=== PATIENT | male | born 1980 | race Two or more races ===

== ENCOUNTER 2018-09-22 12:39 | Emergency (ER) | payer OTHER ==
[~2018-09-22] VITALS: Ht 182.9 cm; Wt 99.8 kg
[2018-09-22] MEDS ORDERED: Tetanus/Diptheria/Pertussis Vaccine 0.5ml Syr IM ONE (13:00)
[2018-09-22] MEDS ORDERED: Norco 5mg/325mg tab ORAL ONE (13:30)
[2018-09-22 13:56] VITALS: BP 132/79
--- NOTE | 2018-09-22 14:29 | Emergency Room Report ---
History of Present Illness General Chief Complaint: Laceration Source: Patient Present Illness HPI 37 YO male presents to the ED c/o in severity pain in the left hand ( dorsum). s/p thorn puncture at work. Patient reports swelling, bleeding and tenderness to the dorsum of the left hand. Patient states he is right-hand dominant. Patient believes that the thorn still stuck inside of his hand. reports large sized thorn approx 3-4 inches. Denies numbness tingling or loss of sensation or gross motor movements of the extremities. Denies taking blood thinning medications. Denies CP, Palpitations, LOC, AMS, dizziness, or weakness. Patient is not sure when his last tetanus vaccination was. Pt. does not know when his last tetanus vaccination was. Allergies: Coded Allergies: No Known Allergies (Unverified , 09/22/18) Patient History Past Medical History: see triage record Past Surgical History: none Pertinent Family History: none Reviewed Nursing Documentation: PMH: Agreed; PSxH: Agreed Nursing Documentation-PMH Past Medical History: No Stated History Review of Systems All Other Systems: negative except mentioned in HPI Physical Exam Vital Signs Date Time Temp Pulse Resp B/P (MAP) Pulse Ox O2 Delivery O2 Flow Rate FiO2 09/22/18 12:45 97.9 70 17 143/82 99 Room Air Sp02 EP Interpretation: reviewed, normal General Appearance: alert, GCS 15, non-toxic, mild distress Head: normocephalic, atraumatic Eyes: bilateral eye normal inspection, bilateral eye PERRL ENT: hearing grossly normal, normal voice Neck: full range of motion Respiratory: lungs clear, normal breath sounds, speaking full sentences Cardiovascular #1: regular rate, rhythm, normal capillary refill Musculoskeletal: back normal, gait/station normal, normal range of motion, non- tender, swelling - moderate swelling to the dorsum of the left hand Neurologic: alert, oriented x3, responsive, motor strength/tone normal, sensory intact, normal gait, speech normal, grossly normal Psychiatric: judgement/insight normal Skin: no rash, warm/dry, well hydrated, other - 0.3 cm puncture wound to the dorsum of the left hand with, moderate swelling and erythema possible foreign body Medical Decision Making PA Attestation Dr. solorio is my supervising Physician whom patient management has been discussed with. Diagnostic Impression: Primary Impression: Puncture wound ER Course 37 YO male presents to the ED c/o in severity pain in the left hand ( dorsum). s/p thorn puncture at work. Patient reports swelling, bleeding and tenderness to the dorsum of the left hand. Patient states he is right-hand dominant. Patient believes that the thorn still stuck inside of his hand. reports large sized thorn approx 3-4 inches. Denies numbness tingling or loss of sensation or gross motor movements of the extremities. Denies taking blood thinning medications. Denies CP, Palpitations, LOC, AMS, dizziness, or weakness. Patient is not sure when his last tetanus vaccination was. Pt. does not know when his last tetanus vaccination was. Ddx considered but are not limited to laceration, tendon injury, cellulitis, amputation Vital signs: are WNL, pt. is afebrile H&PE are most consistent with: 0.3 cm puncture wound to the dorsum of the left hand with, swelling and erythema possible foreign body will perform imaging. ORDERS: -X-rays left hand 3 views, no obvious radiopaque foreign body noted. ED INTERVENTIONS: -Tetanus vaccine was administered as pt. vaccination status was unknown. - The wound was copiously irrigated with normal saline, and explored for foreign body for which no FB was found. -Bacitracin and sterile dressing is applied. -Discussed with patient and it's inappropriate to blindly look for possible foreign body in the soft tissues especially one there is no obvious ED opaque foreign body on imaging. Discussed with patient to do warm water soaks as well as take antibiotic medications and follow up with his primary care provider. Discussed with patient to return with symptoms or signs of infection such as fever, chills, erythema or warmth that is progressive or worsening of his current symptoms. -D/w pt. will prophylactically treat for sporothrix due to his injury occurring in high risk occupation. DISCHARGE: At this time pt. is stable for d/c to home. Will provide printed patient care instructions, and any necessary prescriptions. Care plan and follow up instructions have been discussed with the patient prior to discharge. Other X-Ray Diagnostic Results Other X-Ray Diagnostic Results : X-Ray ordered: Left hand # of Views/Limited Vs Complete: 3 View Indication: Pain EP Interpretation: Yes PA Xray: Interpretation reviewed, by supervising MD, and agrees with findings. Interpretation: no dislocation, no soft tissue swelling, no fractures, other - no obvious radiopaque foreign body noted. Impression: No acute disease Electronically Signed by: Mindy Johnson PA-C Last Vital Signs Date Time Temp Pulse Resp B/P (MAP) Pulse Ox O2 Delivery O2 Flow Rate FiO2 09/22/18 13:56 97.9 85 17 132/79 99 Room Air Disposition: HOME, SELF-CARE Condition: Stable Scripts Ibuprofen* (MOTRIN*) 600 Mg Tablet 600 MG ORAL THREE TIMES A DAY, #30 TAB 0 Refills Prov: Mindy Johnson 09/22/18 Bacitracin/Polymyxin B Sulfate (BACITRACIN-POLYMYXIN OINTMENT) 28.35 Gm Oint...g. 1 APPLIC TP BID, #28.3 GM Prov: Mindy Johnson 09/22/18 Itraconazole (ONMEL) 200 Mg Tablet 200 MG PO DAILY for 4 Days, #4 TAB Prov: Mindy Johnson 09/22/18 Cephalexin* (KEFLEX*) 500 Mg Capsule 500 MG ORAL EVERY 12 HOURS for 7 Days, #14 CAP 0 Refills Prov: Mindy Johnson 09/22/18 Referrals: NOT CHOSEN IPA/,REFERRING (PCP) Departure Forms: Return to Work Return to Work Date: Sep 26, 2018 Work Restrictions: None Other Restrictions: Keep wound clean and dry Return to Full Activity: Sep 26, 2018 Patient Instructions: Itraconazole capsules and tablets, Puncture Wound Additional Instructions: Take medications as directed. Follow up with a Primary Care Provider in 3-5 days, even if your symptoms have resolved. --Please review list of primary care clinics, if you do not already have a primary care provider Return sooner to ED if new symptoms occur, or current symptoms become worse. *! DO NOT DRINK ALCOHOL WHILE TAKING--> ITRACONAZOLE / ANTIFUNGAL This can be very damaging to your LIVER. - Please note that this Emergency Department Report was dictated using [employer] technology software, occasionally this can lead to erroneous entry secondary to interpretation by the dictation equipment. Mindy Johnson Sep 22, 2018 14:29
[2018-09-22] MEDS ORDERED: Bacitracin Oint UD TOPIC ONE (14:30)
[2018-09-22] MEDS ORDERED: BACITRACIN-P28.35 GM TP (14:31)
[2018-09-22] MEDS ORDERED: IBUPROFEN600 MG ORAL (14:31)
[2018-09-22] MEDS ORDERED: CEPHALEXIN500 MG ORAL (14:31)
[2018-09-22] MEDS ORDERED: ONMEL200 MG PO (14:31)
[2018-09-22 14:55] VITALS: BP 132/79
--- NOTE | 2018-09-22 16:37 | Diagnostic Imaging Report ---
Indication: Pain, laceration Technique: 3 views left hand Comparison: none Findings: No acute fractures. No dislocations. Joint spaces are preserved. No radiopaque foreign body Impression: Negative
== END 2018-09-22 14:56 | disposition home or self-care (01) ==
LOC: EMR 13:18
DX: S61.432A Puncture wound without foreign body of left hand, initial encounter (principal); W45.8XXA Other foreign body or object entering through skin, initial encounter; Y92.89 Other specified places as the place of occurrence of the external cause; Y99.0 Civilian activity done for income or pay; Z23 Encounter for immunization
CPT/HCPCS: 90471; 90715; 99284